=== PATIENT | female | born 1990 | race Two or more races ===

== ENCOUNTER 2020-12-09 16:56 | Inpatient (IN) | payer OTHER ==
[~2020-12-09] VITALS: Ht 165.1 cm; Wt 2.3 kg
[2020-12-09] MEDS ORDERED: PRENATAL TABLE1 EAC1 PO (18:13)
[2020-12-09] MEDS ORDERED: IRON325 MG PO (18:13)
[2020-12-09] MEDS ORDERED: PROTONIX IV40 MG IV (18:14)
[2020-12-12] MEDS ORDERED: PREPLUS CA-FE1 EACH PO (08:23)
[2020-12-12] MEDS ORDERED: FERROUS SULFAT325 M1 PO (08:23)
[2020-12-12] MEDS ORDERED: DOCUSATE SODIU100 MG PO (08:23)
[2020-12-12] MEDS ORDERED: OXYC1TAB9 PO (08:23)
[2020-12-12] MEDS ORDERED: SIMETHICONE125 M1 PO (08:23)
== END 2020-12-12 11:45 | disposition home or self-care (01) | DRG 788 ==
LOC: LDR 16:56 → OB/GYN 16:56 → O/R 20:54 → OB/GYN 22:11
PROVIDERS: ADMIT Obstetrics & Gynecology; ATTEND Obstetrics & Gynecology
PROC: 4A1HXFZ Monitoring of Products of Conception, Cardiac Rhythm, External Approach (ICD-10-PCS; 2020-12-09)
PROC: 10D00Z1 Extraction of Products of Conception, Low, Open Approach (ICD-10-PCS; principal; 2020-12-09 20:30)
DX: O65.5 Obstructed labor due to abnormality of maternal pelvic organs (principal); O34.63 Maternal care for abnormality of vagina, third trimester; Z3A.39 39 weeks gestation of pregnancy; Z37.0 Single live birth; Z87.59 Personal history of other complications of pregnancy, childbirth and the puerperium; M06.9 Rheumatoid arthritis, unspecified